=== PATIENT | male | born 1955 | race Caucasian/White ===

== ENCOUNTER → 2016-07-24 07:56 | Outpatient (CLI) | payer OTHER ==
[~2016-07-24 07:56] MED LIST: FLOMAX0.4 MG PO; GLUCOPHAGE1000 MG PO; GLUCOTROL 5 MG T5 MG PO; HYDROCODONE-APA1 TAB PO; LISINOPRIL2.5 MG PO; ZOCOR40 MG PO
[2016-08-21 13:08] VITALS: BMI 32.7
== END | disposition home or self-care (01) ==
LOC: D.CT 07:56
DX: K92.1 Melena (principal); R10.9 Unspecified abdominal pain; K63.89 Other specified diseases of intestine

== ENCOUNTER 2016-08-20 05:26 | Inpatient (IN) | payer OTHER ==
[2016-08-19 11:38] LABS: BASOPHILS 0.6 % (0.0-2.0); EOSINOPHILS 3.4 % (0-7); HEMATOCRIT 37.8 % (42.0-54.0); HEMOGLOBIN 11.7 g/dL (13.5-17.5); IMMATURE GRANULOCYTES 0.3 % (0-5); LYMPHOCYTES 26.8 % (15-50); MCH 24.4 pg (26.0-34.0); MCV 78.9 fL (80.0-100.0); MEAN PLATELET VOLUME 9.5 fL (7.4-10.4); MONOCYTES 10.8 % (2-11); NEUTROPHILS 58.1 % (40-80); PLATELET COUNT 231 10x3/uL (130-400); RBC 4.79 10x6/uL (4.20-6.10); RDW 13.7 % (11.5-14.5); WBC 6.2 10x3/uL (4.8-10.8)
[2016-08-19 11:54] LABS: CALC OSMOLALITY 280 mosm/kg (275-300); CALCIUM 9.1 mg/dL (8.5-10.1); CARBON DIOXIDE 24.2 mmol/L (21.0-32.0); CHLORIDE - SERUM 104 mmol/L (98-107); CREATININE - SERUM 0.9 mg/dL (0.6-1.3); GLUCOSE 110 mg/dL (74-106); POTASSIUM - SERUM 4.1 mmol/L (3.5-5.1); SODIUM 140 mmol/L (136-145); UREA NITROGEN 15 mg/dL (7-18); eGFR NON AFRICAN AMERICAN > 90 mL/min (90-120)
[2016-08-19 12:07] LABS: APTT 24.6 SECONDS (22.8-39.4); INR 0.94 (0.85-1.17); PROTIME 12.4 SECONDS (11.6-15.0)
[~2016-08-20] VITALS: Ht 154.9 cm; Wt 78.5 kg
[2016-08-20] VITALS (19 sets, daily range): BP systolic 116–138; BP diastolic 60–93; BMI 32.7
--- NOTE | ~2016-08-20 | OP ---
PATIENT NAME: GREGG VILLAGRAN MEDICAL RECORD: [id number] :[birth year] LOCATION:D.[id number] ADMISSION DATE:08/20/16 SURGEON: RON MARTINEZ MD DATE OF OPERATION: 08/20/2016 PREOPERATIVE DIAGNOSES: 1. Malignant tumor of the ascending colon. 2. Hypertension. 3. Diabetes mellitus. 4. Hypercholesterolemia. 5. Benign prostatic hypertrophy. POSTOPERATIVE DIAGNOSES: 1. Malignant tumor of the ascending colon. 2. Hypertension. 3. Diabetes mellitus. 4. Hypercholesterolemia. 5. Benign prostatic hypertrophy. PROCEDURE: Hand-assisted laparoscopic right hemicolectomy. SURGEON: Ron Martinez MD. REPORT OF PROCEDURE: The patient's abdomen was prepped and draped in sterile fashion. An incision was made around the patient's umbilicus. Electrocautery was used to dissect through the subcutaneous tissue and through the fascia. Once in the abdominal cavity, a Gelport was inserted with a 5-mm trocar within it. The abdomen was insufflated. A 5-mm trocar was then placed in the epigastrium and another 5-mm trocar was placed in the right subcostal region. The patient's right abdomen was then inspected along with the liver. There was no sign of any carcinomatosis or intra-abdominal masses visible. We took down the white line of Toldt and mobilized the right colon medially. We continued this dissection around through the hepatic flexure. We dissected off of the patient's duodenum. The right colic vessel was found and ligated with EndoClips. At this point, we had mobilized the colon up to where we could eviscerate it through the wound protector. The terminal ileum was transected about 4 cm from its termination using a 60 blue load JUN stapler. The transverse colon was then transected proximally using a 60 blue load JUN stapler. The mass was noted to be within the middle of this specimen. The mesentery was then taken down with sequential clamp and tie technique using multiple 2-0 silks. At this point, the specimen was sent off for permanent. We then performed a ohde-yw-osjf anastomosis of the small bowel to the transverse colon using a 60 blue load JUN stapler. The enterotomies were then closed off with a 30 blue load TA stapler and then oversewn with Lemberted 3-0 silks. This was then placed back into the abdominal cavity and the omentum was placed over top of it. We irrigated out the abdomen thoroughly with normal saline and assured there was no sign of any active bleeding. At this point, the ports were removed. The midline fascia was closed with running #1 loop PDS times 2. The subcutaneous tissues were then irrigated out and the skin was closed with hammad. COMPLICATIONS: None. CONDITION: Stable. OPERATIVE REPORT [id number] GREGG VILLAGRAN ANESTHESIA: General endotracheal. BLOOD LOSS: 50 mL. TRANSINT:[id number] Voice Confirmation ID: [id number] DOCUMENT ID: [id number] RON MARTINEZ MD CC: ALAN CHAPMAN M.D. and GUY GUTIERREZ MD [id number] DICTATION DATE: 08/20/16 1019 ANODE REBUILDER: 08/20/16 1125 ADM IN [facility] [address] [place] [address]
[~2016-08-20 05:26] MED LIST changes: -HYDROCODONE-APA1 TAB PO
--- NOTE | 2016-08-20 16:21 | NUR ---
Patient Name: GREGG VILLAGRAN Admission Status: Elective Accout number: [id number] Admission Date: 08-20-2016 : 1955 Admission Diagnosis: Attending: JUAN Current LOS: 1 Anticipated DC Date: 08-26-2016 Planned Disposition: Home Primary Insurance: [facility] Discharge Planning Comments: CM MET WITH PATIENT REGARDING D/C NEEDS AND PLANS. PATIENT STATED HE HAS A ROOMMATE (TRACEY) AND HE WILL DRIVE HIM HOME AT DISCHARGE. PATIENT STATED THERE ARE 3 STEPS W/RAILS TO ENTER HOME AND NO STAIRS INSIDE. PATIENT STATED HE IS INDEPENDENT WITH HIS CARE AND HAS NO DME EXCEPT HIS GLUCOMETER (CHECKS 4X DAILY). PATIENTS PCP IS DR. CHAPMAN AND MARY ON [address] IS HIS PHARMACY. PATIENT IS REFUSING HOME HEALTH AT THIS TIME BUT STATED HE WOULD CONSIDER IT IF NEEDED AT DISCHARGE. CM WILL CONTINUE TO FOLLOW PATIENT WITH D/C NEEDS AND PLANS. PCP DR[facility] [address] [phone] TRACEY MARTINEZ [phone] Manager Service Desk: Ariane Marcum Is the patient Alert and Oriented? Yes 0 * How many steps to enter\exit or inside your home? 3 W/RAILS 0 * PCP DR. CHAPMAN 0 * Pharmacy [facility] [address] * Preadmission Environment Home with Family 0 * ADLs Independent 0 * Equipment Glucometer 0 * List name and contact numbers for known caregivers / representatives who currently or will assist patient after discharge: TRACEY MARTINEZ (ROOMMATE) [phone] 0 * Community resources currently utilized None 0 * Additional services required to return to the preadmission environment? Yes 0 * Can the patient safely return to the preadmission environment? Yes 0 * Has this patient been hospitalized within the prior 30 days at any hospital? No 0 Grand Total: 0
[2016-08-21] VITALS: BP 129/27
[2016-08-21 04:00] VITALS: BP 112/76
[2016-08-21 05:50] LABS: BASOPHILS 0.3 % (0.0-2.0); EOSINOPHILS 1.2 % (0-7); HEMOGLOBIN 9.6 g/dL (13.5-17.5); IMMATURE GRANULOCYTES 0.2 % (0-5); LYMPHOCYTES 12.1 % (15-50); MCH 24.3 pg (26.0-34.0); MEAN PLATELET VOLUME 9.5 fL (7.4-10.4); MONOCYTES 13.5 % (2-11); NEUTROPHILS 72.7 % (40-80); PLATELET COUNT 210 10x3/uL (130-400); RBC 3.95 10x6/uL (4.20-6.10); RDW 13.9 % (11.5-14.5)
[2016-08-21 05:54] LABS: WBC 9.3 10x3/uL (4.8-10.8)
[2016-08-21 06:06] LABS: CALC OSMOLALITY 275 mosm/kg (275-300); CALCIUM 7.7 mg/dL (8.5-10.1); CARBON DIOXIDE 25.8 mmol/L (21.0-32.0); CHLORIDE - SERUM 105 mmol/L (98-107); CREATININE - SERUM 0.9 mg/dL (0.6-1.3); GLUCOSE 88 mg/dL (74-106); POTASSIUM - SERUM 3.8 mmol/L (3.5-5.1); SODIUM 140 mmol/L (136-145); eGFR NON AFRICAN AMERICAN > 90 mL/min (90-120)
[2016-08-21 06:08] LABS: UREA NITROGEN 6 mg/dL (7-18)
--- NOTE | 2016-08-21 07:25 | NUR ---
PATIENT RECEIVED ALERT IN HIGH MELGAR POSITION. NO SIGNS OF DISTRESS NOTED. DENIES NEEDS. SIDE RAILS UP X2. BED IN LOW POSITION. CALL LIGHT IN REACH. SCD ON BILATERALLY
--- NOTE | 2016-08-21 07:49 | NUR ---
[facility] SUPERVISOR BLOOD DONOR RECRUITERS REPORTS PATIENT NAUSEATED. EMESIS BASIS PROVIDED. ZOFRAN ADMINISTERED PER PRN ORDER. DENIES FURTHER NEEDS. SIDE RAILS UP X2. BED IN LOW POSITION. CALL LIGHT IN REACH.
[2016-08-21 08:59] VITALS: BP 127/66
--- NOTE | 2016-08-21 11:15 | NUR ---
ALERT IN BED WITH GUEST AT BEDSIDE. NO SIGNS OF DISTRESS NOTED. SIDE RAILS UP X2. BED IN LOW POSITION. CALL LIGHT AND AUTOMATIC CLIPPER BUTTON IN REACH.
--- NOTE | 2016-08-21 11:30 | NUR ---
PER [facility] STUDENT AND INSTRUCTOR MATA CATH D/C PER ORDERS. 1000CC URINE EMPTIED FROM COLLECTION BAG
[2016-08-21 13:08] VITALS: Ht 154.9 cm; Wt 78.5 kg
[2016-08-21 13:09] VITALS: BP 127/64
--- NOTE | 2016-08-21 14:35 | NUR ---
PATIENT UP AMBULATING IN ROOM WITHOUT ASSIST. NO SIGNS OF DISTRESS NOTED. DENIES NEEDS. WILL CONTINUE TO MONITOR.
[2016-08-21 17:30] VITALS: BP 123/69
--- NOTE | 2016-08-21 17:45 | NUR ---
SITTING UP IN CHAIR AT BEDSIDE. NO SIGNS OF DISTRESS NOTED. ACCU CHECK 86. DENIES NEEDS. CALL LIGHT AND DESULFURIZER OPERATOR BUTTON IN REACH.
[2016-08-21 19:00] VITALS: BP 97/49
--- NOTE | 2016-08-21 20:15 | NUR ---
BROUGHT PATIENT ICE PER HIS REQUEST AND HUNG A NEW BAG OF FLUIDS. PATIENT STATES HE HAS NO PAIN AT THIS TIME AND DENIES OTHER NEEDS. BED IN LOWEST POSITION AND CALL LIGHT WITHIN REACH. ENCOURAGED PATIENT TO CALL IF HE HAS FURTHER NEEDS.
[2016-08-22] VITALS: BP 108/53
[2016-08-22 04:00] VITALS: BP 102/56
[2016-08-22 06:23] LABS: BASOPHILS 0.1 % (0.0-2.0); HEMATOCRIT 32.1 % (42.0-54.0); HEMOGLOBIN 9.6 g/dL (13.5-17.5); IMMATURE GRANULOCYTES 0.1 % (0-5); LYMPHOCYTES 15.4 % (15-50); MCH 24.5 pg (26.0-34.0); MCHC 29.9 g/dL (31.0-37.0); MCV 81.9 fL (80.0-100.0); MEAN PLATELET VOLUME 9.4 fL (7.4-10.4); MONOCYTES 12.5 % (2-11); NEUTROPHILS 68.9 % (40-80); PLATELET COUNT 186 10x3/uL (130-400); RBC 3.92 10x6/uL (4.20-6.10); RDW 13.8 % (11.5-14.5)
[2016-08-22 06:36] LABS: WBC 6.7 10x3/uL (4.8-10.8)
[2016-08-22 06:41] LABS: CALC OSMOLALITY 276 mosm/kg (275-300); CALCIUM 7.9 mg/dL (8.5-10.1); CARBON DIOXIDE 24.3 mmol/L (21.0-32.0); CHLORIDE - SERUM 106 mmol/L (98-107); CREATININE - SERUM 0.7 mg/dL (0.6-1.3); GLUCOSE 102 mg/dL (74-106); POTASSIUM - SERUM 3.6 mmol/L (3.5-5.1); SODIUM 140 mmol/L (136-145); UREA NITROGEN 8 mg/dL (7-18); eGFR NON AFRICAN AMERICAN > 90 mL/min (90-120)
--- NOTE | 2016-08-22 07:45 | NUR ---
SITTING AT BEDSIDE, WANTING A SHOWER AND TO WALK, DENIES NEEDS, BED LOWEST POSITION, CALL LIGHT IN REACH, WILL CONTINUE TO MONITOR
[2016-08-22 08:00] VITALS: BP 122/68
[2016-08-22 12:00] VITALS: BP 119/62
--- NOTE | 2016-08-22 13:40 | NUR ---
SMALL BM SOME LIQUID SOME STOOL
--- NOTE | 2016-08-22 13:52 | NUR ---
PATIENT AWAKE, ALERT AND ORIENTED X'S 4. RESPIRATIONS ARE EVEN AND UNLABORED ON ROOM AIR. FRIEND IN ROOM. PATIENT SITTING UP IN THE CHAIR.
[2016-08-22 16:00] VITALS: BP 118/66
[2016-08-22 19:00] VITALS: BP 144/78
--- NOTE | 2016-08-22 23:03 | NUR ---
PT AMBULATES HALLS FREQUENTLY. DENIES PAIN. DENIES NAUSEA. PT HAS HAD A FEW BM'S. LAST BM CLEAR/MUCOUS. TOLERATES FULL LIQUIDS. INCISION AND LAPS C/D/I, NO REDNESS AND EDGES APPROXIMATED. NO OTHER NEEDS. WILL CONTINUE TO MONITOR.
[2016-08-23] VITALS: BP 162/86
[2016-08-23 04:00] VITALS: BP 135/70
--- NOTE | 2016-08-23 07:15 | NUR ---
UP IN ROOM,WITHOUT DISTRESS.WANTS SHOWER THIS AM.INSTRUCTED TO CALL FOR NEEDS
--- NOTE | 2016-08-23 07:30 | NUR ---
SITTING AT BEDSIDE WAITING ON BREAKFAST, HOPEFUL TO GO HOME, DENIES NEEDS, BED LOWEST POSITION, CALL LIGHT IN REACH, WILL CONTINUE TO MONITOR
[2016-08-23 08:20] VITALS: BP 153/79
[2016-08-23] MEDS ORDERED: HYDROCODONE-APA1 TAB PO (09:52)
--- NOTE | 2016-08-23 10:28 | NUR ---
CM REASSESSMENT NOTE: PATIENT IS DISCHARGING HOME TODAY BY PRIVATE CAR. PATIENT REFUSED HOME HEALTH AND HAD NO OTHER NEEDS.
--- NOTE | 2016-08-23 11:13 | NUR ---
DISCHARGE PAPERS AND INSTRUCTIONS GIVEN TO PT AND FAMILY, QUESTIONS ANSWERED, IV REMOVED TIP INTACT, DISCHARGED PER WC WITH BELONGINGS
== END 2016-08-23 11:15 | disposition home or self-care (01) | DRG 331 ==
LOC: D.SDCHOLD 05:26 → D.MS 05:26 → D.SDCHOLD 07:30 → D.MS 10:23
PROVIDERS: Anesthesiology; ADMIT Surgery
PROC: 0DTF0ZZ Resection of Right Large Intestine, Open Approach (ICD-10-PCS; principal; 2016-08-20 08:30)
DX: C18.2 Malignant neoplasm of ascending colon (principal); I10 Essential (primary) hypertension; E11.9 Type 2 diabetes mellitus without complications; E78.00 Pure hypercholesterolemia, unspecified; N40.0 Benign prostatic hyperplasia without lower urinary tract symptoms

== ENCOUNTER 2017-03-16 20:51 | Observation (INO) | payer OTHER ==
[~2017-03-16 20:51] MED LIST changes: +HYDROCODONE-APA1 TAB PO
[2017-03-16 21:17] LABS: BASOPHILS 0.1 % (0-2); EOSINOPHILS 1.5 % (0-7); HEMATOCRIT 49.9 % (42.0-54.0); HEMOGLOBIN 16.9 g/dL (13.5-17.5); IMMATURE GRANULOCYTES 0.6 % (0-5); LYMPHOCYTES 8.7 % (15-50); MCH 29.6 pg (26.0-34.0); MCHC 33.9 g/dL (31.0-37.0); MCV 87.4 fL (80.0-100.0); MEAN PLATELET VOLUME 9.9 fL (7.4-10.4); MONOCYTES 5.9 % (2-11); NEUTROPHILS 83.2 % (40-80); RBC 5.71 10x6/uL (4.20-6.10); RDW 12.8 % (11.5-14.5); WBC 16.2 10x3/uL (4.8-10.8)
[2017-03-16 21:26] LABS: ALBUMIN 4.4 g/dL (3.4-5.0); ALKALINE PHOSPHATASE 97 U/L (46-116); ALT (SGPT) 48 U/L (10-68); BILIRUBIN - TOTAL 0.46 mg/dL (0.2-1.3); CALC OSMOLALITY 290 mosm/kg (275-300); CALCIUM 9.6 mg/dL (8.5-10.1); CHLORIDE - SERUM 101 mmol/L (98-107); CREATININE - SERUM 1.1 mg/dL (0.6-1.3); POTASSIUM - SERUM 4.3 mmol/L (3.5-5.1); PROTEIN - SERUM 8.6 g/dL (6.4-8.2); SODIUM 140 mmol/L (136-145); UREA NITROGEN 20 mg/dL (7-18); eGFR NON AFRICAN AMERICAN 73 mL/min (90-120)
[2017-03-16 21:29] LABS: AMYLASE - SERUM 43 U/L (25-115); GLUCOSE 261 mg/dL (74-106); LIPASE 279 U/L (73-393); TROPONIN-I < 0.017 ng/mL (0.000-0.060)
[2017-03-16 21:30] LABS: PLATELET COUNT 236 10x3/uL (130-400)
[2017-03-16 23:29] LABS: APPEARANCE CLEAR (CLEAR); BILIRUBIN NEGATIVE (NEGATIVE); COLOR YELLOW (YELLOW); GLUCOSE 1000 mg/dL (NEGATIVE); KETONE SMALL mg/dL (NEGATIVE); NITRITE NEGATIVE (NEGATIVE); PROTEIN NEGATIVE (NEGATIVE); SPECIFIC GRAVITY 1.015 (1.005-1.020); UROBILINOGEN NORMAL (NORMAL)
--- NOTE | 2017-03-17 01:03 | NUR ---
RECEIVED REPORT FROM PAT COSBY, FROM ER, PT HAS A R. AC, NS @125, BED IS LOW, SRX2, CALL LIGHT IN REACH, GAVE NON-SKID SOCKS, PLACE ON TELEMTRY, WILL CONTINUE PLAN OF CARE
[2017-03-17 02:47] VITALS: BP 139/82; BMI 33.5
--- NOTE | 2017-03-17 02:54 | NUR ---
TECHNICAL WRITING LEAD/MGR COMPLETED. PT STATES HE IS FEELING BETTER. IV TO RAC WITH NS AT 125CC/HR. WILL CONTINUE TO MONITOR. SR UP X2, CALL LIGHT WITHION REACH.
[2017-03-17 04:00] VITALS: BP 113/61
--- NOTE | 2017-03-17 05:11 | NUR ---
PT RESTING, NO DISTRESS NOTICED, BED IS LOW, SRX2, CALL LIGHT IN REACH, WILL CONTINUE TO MONITOR
--- NOTE | 2017-03-17 07:36 | NUR ---
AM ROUNDING- RECEIVED REPORT FROM [employer] NURSE SYLVIA. PT IS CURRENTLY LAYING IN BED ON LEFT SIDE WITH EYES OPEN RESTING TALKING ON PHONE. PT IS REQUESTING CUP OF ICE WATER. ON ROOM AIR. ON MONITOR SHOWING ST, HR 121. IV SEEN TO RIGHT AC WITH NS RUNNING AT 125CC. WILL CONTINUE TO MONITOR AND CONTINUE WITH PLAN OF CARE.
[2017-03-17 08:34] VITALS: BP 105/69
[2017-03-17 12:23] VITALS: BP 101/64
[2017-03-17 13:02] VITALS: BMI 33.4
--- NOTE | 2017-03-17 16:42 | NUR ---
SPOKE WITH [place] WITH DR TAI. DR HERNANDEZ IS ON FOR DR TAI. SHE STATED THAT THE PATIENT IS NOT SHOWING UP ON THIER LIST NOR IN THEIR SYSTEM. SHE QUESTIONED TO IF THE PATIENT BELONGED TO THEIR CLINIC OR NOT WHEN CALLED TO REVIEW THE PATIENT AND POSSIBLY GET ADMISSION ORDERS. THE MD NOTE FROM THE ER AND THE ADMISSION ORDER WAS REVIEWED. AFTER GETTING OFF THE PHONE WITH HER, I WENT INTO THE ROOM AND CONFIRMED WITH THE PATIENT WHO HIS PCP WAS. HE STATED DR CHAPMAN. DR LOPEZ AND GAIL KHALIL CNP WERE WALKING PAST PATIENTS POD I EXITED THE ROOM. THE DENY THAT THE PATIENT IS ON THEIR LIST OF PATIENTS EITHER. EXPLAIEND THAT HIS PCP IS DR CHAPMAN PER CONFORMATION WITH THE PATIENT. GAIL QUESTIONED TO WHEN THE PATIENT ARRIVED TO THE FLOOR AND HER QUESTION WAS ANSWERED. DR HAM STATED HE WOULD SEE THE PATIENT AND I THANKED HIM AND EXPLAINED I WOULD WORK ON GETTING IT FIXED IN THE COMPUTER. CALL WAS PLACED BACK TO DR HERNANDEZ'S OFFICE AND LEFT A MESSAGE TO LET THEM KNOW THAT THIS PATIENT IS A DR CHAPMAN PATIENT AND I HAVE DISCUSSED IT WITH DR LOPEZ AND THEY WILL SEE THE PATIENT AND IT WILL BE CHANGED IN THE COMPUTER.
[2017-03-17 16:43] VITALS: BP 104/61
--- NOTE | 2017-03-17 16:45 | NUR ---
GAIL KHALIL NUMBERER AND WIRER ON UNIT. GAIL STATES TO ORDER PT REGULAR DIET AND TO SEE HOW WELL HE TOLERATES TO POSSIBLE D/C HOME TONIGHT.
--- NOTE | 2017-03-17 17:26 | NUR ---
DR. LOPEZ STATES TO SEE HOW PT TOLERATES DINNER, WAIT ONE HOUR AFTER PT EATS DINNER, AND CALL TO SEE REGARDING D/C ORDERS. WILL DO ORDERED AND CONTINUE TO MONITOR.
--- NOTE | 2017-03-17 18:32 | NUR ---
PT IS CURRENTLY SITTING UP IN BED WITH EYES OPEN RESTING. NO NEED AT THIS CURRENT TIME. PT AWARE TO ALERT STAFF IF HAVING ANY PROBLEMS AFTER EATING DINNER. WILL CONTINUE TO MONITOR.
--- NOTE | 2017-03-17 19:50 | NUR ---
DISCHARGE ORDERS GONE OVER WITH AND COPIES GIVE TO PT. NIEVES CALLED AT PTS REQUEST.
== END 2017-03-17 19:50 | disposition home or self-care (01) ==
LOC: D.ER 20:51 → D.M2 03-17 00:31 → OBSVTIME 03-17 00:31 → D.M2 03-17 19:50
PROVIDERS: Family Medicine; ADMIT Family Medicine
DX: K52.9 Noninfective gastroenteritis and colitis, unspecified (principal); Z85.038 Personal history of other malignant neoplasm of large intestine; E11.65 Type 2 diabetes mellitus with hyperglycemia; I10 Essential (primary) hypertension; E78.5 Hyperlipidemia, unspecified

== ENCOUNTER → 2018-05-27 11:45 | Outpatient (CLI) | payer OTHER | END | disposition home or self-care (01) | LOC: D.RAD 11:45 | DX: R07.0 Pain in throat (principal) ==

== ENCOUNTER 2020-09-28 13:29 | Emergency (ER) | payer OTHER ==
[~2020-09-28] VITALS: Ht 154.9 cm; Wt 76.4 kg
[2020-09-28 13:39] VITALS: BP 142/75; Ht 154.9 cm; Wt 76.4 kg
[2020-09-28 14:06] LABS: CALC OSMOLALITY 283 mosm/kg (275-300); CALCIUM 9.4 mg/dL (8.5-10.1); CARBON DIOXIDE 25.5 mmol/L (21.0-32.0); CHLORIDE - SERUM 104 mmol/L (98-107); POTASSIUM - SERUM 3.7 mmol/L (3.5-5.1); SODIUM 140 mmol/L (136-145); UREA NITROGEN 14 mg/dL (7-18); eGFR NON AFRICAN AMERICAN 80 mL/min (90-120)
[2020-09-28 14:09] LABS: GLUCOSE 178 mg/dL (74-106)
[2020-09-28 14:15] LABS: BASOPHILS 0.4 % (0-2); EOSINOPHILS 2.2 % (0-7); HEMATOCRIT 42.3 % (42.0-54.0); IMMATURE GRANULOCYTES 0.6 % (0-5); LYMPHOCYTE ABS# 1.16 10x3/uL (1.32-3.57); LYMPHOCYTES 16.9 % (15-50); MCH 29.4 pg (26.0-34.0); MCHC 33.1 g/dL (31.0-37.0); MCV 88.7 fL (80.0-100.0); MEAN PLATELET VOLUME 9.5 fL (7.4-10.4); MONOCYTES 9.8 % (2-11); NEUTROPHILS 70.1 % (40-80); PLATELET COUNT 192 10x3/uL (130-400); RBC 4.77 10x6/uL (4.20-6.10); RDW 13.2 % (11.5-14.5); WBC 6.9 10x3/uL (4.8-10.8)
[2020-09-28 14:22] LABS: ALBUMIN 3.7 g/dL (3.4-5.0); ALKALINE PHOSPHATASE 75 U/L (30-120); ALT (SGPT) 35 U/L (10-68); BILIRUBIN - TOTAL 0.45 mg/dL (0.2-1.3); CKMB 2.6 U/L (0.0-3.6); CREATINE KINASE 173 UL (21-232); PROTEIN - SERUM 7.2 g/dL (6.4-8.2); TROPONIN-I < 0.017 ng/mL (0.000-0.060)
== END 2020-09-28 14:35 | disposition home or self-care (01) ==
LOC: D.ER 13:29
PROVIDERS: Family Medicine
DX: E11.649 Type 2 diabetes mellitus with hypoglycemia without coma (principal); R07.89 Other chest pain; I10 Essential (primary) hypertension; N40.0 Benign prostatic hyperplasia without lower urinary tract symptoms; Z79.84 Long term (current) use of oral hypoglycemic drugs